=== PATIENT | female | born 1995 | race Caucasian/White ===

== ENCOUNTER 2019-01-22 21:45 | Emergency (ER) | payer BC ==
[~2019-01-22] VITALS: Ht 162.6 cm; Wt 85.7 kg
[~2019-01-22 21:45] MED LIST: CLEOCIN HCL300 MG PO; DOXYCYCLINE 10100 MG PO; NOHOMEMEDICATIONS; XANAX 0.25 MG0.25 MG PO
[2019-01-22] MEDS ORDERED: VYVANSE10 MG PO (22:07)
[2019-01-22] MEDS ORDERED: ABILIFY15 MG PO (22:07)
[2019-01-22 22:50] VITALS: BP 102/60
== END 2019-01-22 22:50 | disposition home or self-care (01) ==
LOC: M.ERS 21:45
DX: F41.9 Anxiety disorder, unspecified (principal); Z88.1 Allergy status to other antibiotic agents

== ENCOUNTER 2019-03-23 13:45 | Emergency (ER) | payer BC ==
[~2019-03-23] VITALS: Ht 170.2 cm; Wt 78.2 kg
[~2019-03-23 13:45] MED LIST changes: +ABILIFY15 MG PO; +VYVANSE10 MG PO
[2019-03-23] MEDS ORDERED: LITHIUM CARBON150 MG PO (13:57)
[2019-03-23] MEDS ORDERED: REMERON15 MG PO (13:57)
[2019-03-23 14:16] LABS: URINE BILIRUBIN NEGATIVE (Negative); URINE BLOOD NEGATIVE (Negative); URINE CLARITY CLEAR; URINE COLOR YELLOW; URINE GLUCOSE-RANDOM NEGATIVE (Negative); URINE KETONES NEGATIVE (Negative); URINE LEUKOCYTES TRACE (Negative); URINE NITRITE NEGATIVE (Negative); URINE PROTEIN NEGATIVE (Negative); URINE SPECIFIC GRAVITY <= 1.005 (1.005-1.030); URINE UROBILINOGEN 0.2 E.U./dl (0.2-1.0)
[2019-03-23 14:17] LABS: HEMATOCRIT 38.6 % (37.0-47.0); HEMOGLOBIN 13.7 gm/dL (12.0-15.0); MCHC 35.5 g/dL (28.0-37.0); MCV 87.4 fL (80.0-100.0); MPV 8.7 fl. (7.2-11.1); RBC 4.41 mil/uL (4.20-5.00); RDW-CV 12.6 % (10.5-14.5); WBC 10.7 thou/uL (4.0-11.0)
[2019-03-23 14:23] LABS: AMP/METHAMP POSITIVE (Negative); BARBITURATES Negative (Negative); BENZODIAZEPINES POSITIVE (Negative); COCAINE Negative (Negative); METHADONE Negative (Negative); OPIATES Negative (Negative); PCP Negative (Negative); THC POSITIVE (Negative)
[2019-03-23 14:24] LABS: CALCIUM 9.1 mg/dL (8.5-10.1); CREATININE 0.9 mg/dL (0.6-1.3); POTASSIUM 3.1 mmol/L (3.5-5.1)
[2019-03-23 14:28] LABS: BACTERIA 1-9 Few /HPF (None Seen); CASTS None Seen /LPF (None Seen); CRYSTALS None Seen /LPF (None Seen); SQUAMOUS 0-3 Few /LPF (0-3); URINE RBC 0-2 Rare /HPF (0-2); URINE WBC 0-5 Rare /HPF (0-5)
[2019-03-23 14:29] LABS: ALBUMIN 4.2 g/dL (3.4-5.0); TOTAL BILIRUBIN 0.8 mg/dL (<0.1-1.0); TOTAL PROTEIN 7.2 g/dL (6.4-8.2)
[2019-03-23 14:35] LABS: ACETAMINOPHEN < 2 ug/mL (10-30); ALCOHOL < 10 mg/dL (<10); SALICYLATE < 2.8 mg/dL (2.8-20.0)
[2019-03-23 17:04] VITALS: BP 100/65
--- NOTE | 2019-03-24 14:43 | EKG ---
[place] [address] ELECTROCARDIOGRAM REPORT Name: SUPRIYA SAWANT Room: [facility]#: [id number] Admission: 03/23/19 Attend Phys: Discharge: 03/23/19 Date of : [birth year] Report #: [id number] THIS REPORT FOR: //name// [facility] ED Test Date: 2019-03-23 Test Time: 13:50:55 Pat Name: SUPRIYA SAWANT Department: Room: Gender: F Tanker Driver: TEMO : 1995 Requested By: Karmen Carpenter Order Number: [id number] MD: Canelo Lackey Measurements Intervals [place] Rate: 112 P: 72 OK: 145 QRS: 49 QRSD: 78 T: 41 QT: 323 QTc: 441 Interpretive Statements Sinus tachycardia Baseline wander in lead(s) V5 Compared to ECG 09/04/2016 01:23:41 Sinus arrhythmia no longer present Electronically Signed On 03-24-2019 14:43:27 CDT by Canelo Lackey [email or web address] <ELECTRONICALLY SIGNED> By: Canelo Lackey MD, [facility] 03/24/19 1443 1350 1350 Canelo Lackey MD, FACC /EPI
== END 2019-03-23 17:07 | disposition home or self-care (01) ==
LOC: M.ERS 13:45
PROVIDERS: Personal Emergency Response Attendant
DX: F19.10 Other psychoactive substance abuse, uncomplicated (principal); F41.9 Anxiety disorder, unspecified; Z88.1 Allergy status to other antibiotic agents; R41.82 Altered mental status, unspecified

== ENCOUNTER 2021-01-10 20:52 | Emergency (ER) | payer OTHER, MEDICAID ==
[~2021-01-10] VITALS: Ht 162.6 cm; Wt 90.7 kg
[~2021-01-10 20:52] MED LIST changes: +LITHIUM CARBON150 MG PO; +REMERON15 MG PO
[2021-01-10] MEDS ORDERED: CLONAZEPAM 0.50.5 M1 PO (21:11)
[2021-01-10] MEDS ORDERED: GEODON20 MG PO (21:12)
[2021-01-10] MEDS ORDERED: OXTELLAR XR150 MG PO (21:12)
[2021-01-10 22:28] VITALS: BP 130/78
== END 2021-01-10 22:29 | disposition home or self-care (01) ==
LOC: M.ERS 20:52
DX: F41.9 Anxiety disorder, unspecified (principal); R19.7 Diarrhea, unspecified; F31.9 Bipolar disorder, unspecified; Z20.822 Contact with and (suspected) exposure to COVID-19; Z79.899 Other long term (current) drug therapy; Z88.1 Allergy status to other antibiotic agents